=== PATIENT | female | born 1975 | race Two or more races ===

== ENCOUNTER 2020-09-05 12:42 | Outpatient (CLI) | payer OTHER ==
[2020-09-05] MEDS ORDERED: GADOBUTROL 7.5 MMOL/7.5 ML VIAL ONE (12:58)
[2020-09-05] MEDS ORDERED: GADOBUTROL 7.5 MMOL/7.5 ML VIAL IVP ONE (13:39)
--- NOTE | 2020-09-08 10:32 | MRI Report ---
PROCEDURE: Wrist RT W/WO INDICATIONS: PARESETHIAS, CYSTIC LESION IN RT VOLAR WRIST CONTRAST: IV CONTRAST: Gadavist ml: 6 TECHNIQUE: Noncontrast coronal proton density fast spin echo and T2 fast spin echo with fat saturation; coronal 3-D gradient echo, axial T1 spin echo and T2 fast spin echo with fat saturation, axial T1 spin echo w ith fat saturation, sagittal T1 spin echo through the wrist. Post-contrast axial, coronal, and sagit nicolas T1 spin echo with fat saturation through the wrist. COMPARISON: None. FINDINGS: Image quality: Excellent. Bones and cartilage: Surface skin marker is placed over plantar aspect of wrist at the level of prox imal carpal row. No suspicious osseous enhancement. The carpal bones are normally aligned. No bone marrow contusions or fractures. No evidence for avascular necrosis. Nonspecific intraosseous cysti c structure with internal septation involving distal portion of scaphoid is noted and show no abnorma l enhancement. This structure measures approximately 4 mm in size. Overlying cartilage surfaces appea r normal. Carpal ligaments: The scapholunate and lunotriquetral ligaments appear intact. In the absence of in tra-articular contrast, the extrinsic carpal ligaments are not well identified. On sagittal images, the pisohamate ligament appears intact. Triangular fibrocartilage complex: The triangular fibrocartilage appears intact. The adjacent menis jareth homolog appears normal in the absence of intra-articular contrast. The extensor carpi ulnaris te ndon is normal in location and morphology. Tendons and soft tissues: No suspicious soft tissue enhancement. The carpal tunnel structures appea r normal, including the median nerve. The ulnar nerve appears normal within Guyon?s canal. All six extensor tendon compartments demonstrate normal morphology, without pathologic tendon sheath fluid. T here is a 7 x 3 x 5 mm nonenhancing T2 hyperintense and T1 hypointense structure over the volar aspec t of radial styloid with thin internal septation likely represent a ganglion cyst. IMPRESSION: 1. No marrow edema. No fracture or dislocation. Septated intraosseous cyst formation in distal scapho id which is a fairly nonspecific finding. No enhancing intraosseous lesion. 2. Suggestion of a 7 x 3 x 5 mm ganglion cyst over lateral aspect of radial styloid. 3. No enhancing soft tissue mass. No gross tendon or ligament pathology. 4. Irregular fibrocartilage complex is grossly intact. Reviewed by: Jonnathan Walker MD on 09/08/2020 10:30 AM PST Approved by: Jonnathan Walker MD on 09/08/2020 10:30 AM PST Station ID: [id number]
== END 2020-09-05 12:43 | disposition home or self-care (01) ==
LOC: DI 12:42
PROVIDERS: ATTEND Student in an Organized Health Care Education/Training Program
DX: M25.831 Other specified joint disorders, right wrist (principal)
CPT/HCPCS: 73223; A9585

== ENCOUNTER 2021-02-03 16:52 | Emergency (ER) | payer OTHER ==
--- NOTE | 2021-02-03 17:34 | ED Physician Documentation ---
History of Present Illness - Stated complaint Stated Complaint: CHEST HEAVINESS - Chief complaint Chief Complaint: General - History obtained from History obtained from: Patient - Additonal information Additional information: 45-year-old woman with history of ulcerative colitis, medically managed, otherwise very healthy. No personal history of heart disease but does run in the family. 4 days ago she felt panicky, and had chest heaviness that night, it returned last night again with chest heaviness that seems worse when she lays on her side, not mattering which side she lays on. She is mildly short of breath today. She denies pedal edema, calf pain, recent travel, cough, hemoptysis. Review of Systems Constitutional: denies: Fever, Chills, Fatigue Cardiac: denies: Palpitations, Pedal edema, Calf pain Respiratory: denies: Cough, Hemoptysis, Wheezing PD PAST MEDICAL HISTORY - Past Medical History Respiratory: Pneumonia, Other GI: Ulcerative colitis Psych: Anxiety Other Past Medical History: seasonal allergies - Past Surgical History Past Surgical History: No - Present Medications Home Medications: Ambulatory Orders Medication Instructions Recorded Confirmed Fexofenadine/Pseudoephedrine 1 each PO DAILY 02/03/21 02/03/21 [Kamryn-D 24 Hour Tablet] - Allergies Allergies/Adverse Reactions: Allergies Allergy/AdvReac Type Severity Reaction Status Date / Time No Known Drug Allergies Allergy Verified 02/03/21 17:35 - Social History Does the pt smoke?: No Smoking Status: Never smoker Does the pt drink ETOH?: No Does the pt have substance abuse?: No - Immunizations Immunizations are current?: Yes - POLST Patient has POLST: No PD ED PE NORMAL - Vitals Vital signs reviewed: Yes - General General: Alert and oriented X 3, No acute distress - HEENT HEENT: PERRL, EOMI - Neck Neck: Supple, no meningeal sign, No bony TTP - Cardiac Cardiac: RRR, No murmur - Respiratory Respiratory: No respiratory distress, Clear bilaterally - Abdomen Abdomen: Non tender - Derm Derm: Normal color, Warm and dry - Neuro Neuro: Alert and oriented X 3, Normal speech Results - Vitals Vitals: Vital Signs - 24 hr 02/03/21 02/03/21 17:00 18:09 Temperature 36.9 C Heart Rate 70 84 Respiratory 15 16 Rate Blood Pressure 116/65 126/91 H O2 Saturation 99 97 Oxygen O2 Source Room air - EKG (time done) 1712 Rate: Rate (enter#) (78) Rhythm: NSR [place]: Normal Intervals: Normal [place] QRS: Normal Ischemia: Normal ST segments - Labs Labs: Laboratory Tests 02/03/21 18:08 Troponin I High Sens < 2.3 L - Rads (name of study) 2v chest Radiology: EMP read contemporaneously (normal) PD MEDICAL DECISION MAKING - ED course ED course: Heart 1, perc - Departure - Departure Disposition: Home, Self Care Clinical Impression: Chest pain Condition: Good Record reviewed to determine appropriate education?: Yes Instructions: ED Chest Pain Atypical Unkn Cause Comments: Call your doctor to arrange a follow-up appointment, make the next available appointment. In the interim, return anytime if worse or if new symptoms develop. Discharge Date/Time: 02/03/21 18:52
--- NOTE | 2021-02-03 17:50 | XRAY Report ---
PROCEDURE: Chest 2 View X-Ray INDICATIONS: Chest pain TECHNIQUE: 2 view(s) of the chest. COMPARISON: None. FINDINGS: Surgical changes and devices: None. Lungs and pleura: No pleural effusions or pneumothorax. Lungs are clear. Mediastinum: Mediastinal contours are normal. Heart size is normal. Bones and chest wall: No suspicious bony abnormalities. Soft tissues appear unremarkable. IMPRESSION: No acute cardiopulmonary process demonstrated radiographically. Reviewed by: Beto Lindsey MD on 02/03/2021 5:49 PM PDT Approved by: Beto Lindsey MD on 02/03/2021 5:49 PM PDT Station ID: [id number]
--- OUTSIDE RECORDS SUMMARY | 2021-02-03 17:50 | EXTERNAL MEDICAL SUMMARY RPT | Continuity of Care Document ---
:1975 Demographics Phone Unavailable Preferred Language Unknown Marital Status Unknown Moravian Affiliation Unknown Race Unknown Ethnic Group Unknown Author Organization [place] Address [address] [place] [address] Phone Social History date description facility [id number]
[2021-02-03 18:10] VITALS: BP 126/91
== END 2021-02-03 18:52 | disposition home or self-care (01) ==
LOC: ED 16:52
DX: R07.89 Other chest pain (principal)
CPT/HCPCS: 36415; 84484; 93005; 99284